=== PATIENT | female | born 1940 | race Caucasian/White ===

== ENCOUNTER 2018-05-24 16:02 | Inpatient (IN) | payer OTHER, BC ==
[~2018-05-24] VITALS: Ht 160 cm; Wt 94.3 kg
--- NOTE | ~2018-05-24 | EKG ---
[place] [address] [facility] [place] [address] ELECTROCARDIOGRAM REPORT Name: MICHELLE WAGONER Room #: 356-P ADM IN M.R.#: [id number] Admission: 05/24/18 Attend Phys: Fletcher Hinlke MD Discharge: Date of : 38 Report #: [id number] THIS REPORT FOR: //name// [facility] ED Test Date: 2018-05-24 Test Time: 17:00:24 Pat Name: MICHELLE WAGONER Department: Room: Gender: F Anesthesiology Technologist: Ricardo TERRY : 1940 Requested By: Alfred Abbott Order Number: [id number] MD: Crow Moody Measurements Intervals [place] Rate: 66 P: DC: QRS: -23 QRSD: 99 T: 68 QT: 452 QTc: 474 Interpretive Statements Atrial fibrillation Ventricular premature complex Poor R wave progression Compared to ECG 04/09/2018 12:52:02 Aberrant conduction is no longer present Electronically Signed On 05-25-2018 7:49:01 CDT by Crow Moody [email or web address] <ELECTRONICALLY SIGNED> By: Crow Moody MD, [facility] 05/25/18 0749 99 99 Crow Moody MD, [facility] /EPI
--- NOTE | ~2018-05-24 | EKG ---
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 : 1940 Requested By: Ivonne Xiong Order Number: [id number] MD: Crow Moody Measurements Intervals [place] Rate: 116 P: [place]: QRS: 24 QRSD: 99 T: 192 QT: 330 QTc: 459 Interpretive Statements Atrial fibrillation Ventricular premature complexes Low voltage, extremity leads Nonspecific repol abnormality, diffuse leads Compared to ECG 05/24/2018 17:00:24 [address] change in the ST and T-wave segments Electronically Signed On 05-27-2018 8:20:56 CDT by Crow Moody [email or web address] <ELECTRONICALLY SIGNED> By: Crow Moody MD, [facility] 05/27/18 0820 2210 09 Crow Moody MD, [facility] /EPI
[~2018-05-24 16:02] MED LIST: AMARYL2 MG PO; APAP500 PO; ASPIRIN EC81 M1 PO; COUMADIN 5 MG TA5 M1 PO; COUMADIN6 MG PO; CRESTOR40 MG; DEMADEX20 MG PO; DOXYCYCLINE 10100 M1 PO; ESTRACE1 MG PO; GLUCOPHAGE XR500 MG PO; JANUMET 50-1,01 EACH PO; JANUVIA25 MG PO; K-DUR 20 MEQ T20 MEQ PO; KLOR-CON 1010 MEQ PO; LEVAQUIN 500 M500 M1 PO; LEVAQUIN 500 M500 M2 PO; LIPITOR20 MG PO; LISINOPRIL2.5 MG PO; LOPRESSOR25 PO; MULTAQ400 MG PO; PREDNISONE 20 M20 M1 PO; TOPROL XL50 MG PO; TORSEMIDE100 MG PO; VENTOLIN HFA INH8 GM INH
[2018-05-24 16:04] VITALS: BP 154/92
[2018-05-24 16:33] LABS: ABSOLUTE NEUTROPHILS 4.6 thou/uL (1.4-8.2); BASOPHILS 0.6 % (0.0-2.0); EOSINOPHILS 0.3 % (0.0-3.0); HEMATOCRIT 37.7 % (37.0-47.0); HEMOGLOBIN 12.7 gm/dL (12.0-15.0); LYMPHOCYTES 10.5 % (24.0-44.0); MCH 32.1 pg (26.0-34.0); MCHC 33.7 g/dL (28.0-37.0); MCV 95.1 fL (80.0-100.0); MONOCYTES 9.2 % (1.0-8.0); PLATELET COUNT 127 thou/uL (150-400); POLYS 79.4 % (36.0-66.0); RBC 3.97 mil/uL (4.20-5.00); RDW 15.2 % (10.5-14.5); WBC 5.8 thou/uL (4.0-11.0)
[2018-05-24 16:41] LABS: ANION GAP 8 mmol/L (7-16); BUN 12 mg/dL (7-18); CALCIUM 8.5 mg/dL (8.5-10.1); CHLORIDE 105 mmol/L (98-107); CO2 29 mmol/L (21-32); CREATININE 1.3 mg/dL (0.6-1.0); GLUCOSE 149 mg/dL (74-106); POTASSIUM 3.9 mmol/L (3.5-5.1); SODIUM 142 mmol/L (136-145)
[2018-05-24 16:50] LABS: TROPONIN-I <0.06 ng/mL (<0.06)
[2018-05-24 16:59] LABS: BE(vivo) -0.5 mmol/L (-2 to +3); HCO3 24.6 mmol/L (22.0-26.0); PCO2 41.9 mmHg (35.0-45.0); PO2 92.3 mmHg (80.0-100.0); pH 7.386 (7.360-7.450)
[2018-05-24 17:41] LABS: INR 2.8; PROTIME 28.5 Seconds (9.3-11.4)
[2018-05-24 18:42] VITALS: BP 154/92
[2018-05-24 19:08] VITALS: BP 110/45
[2018-05-24 19:55] VITALS: BP 115/57
[2018-05-24 23:40] VITALS: BP 123/54
[2018-05-25 03:30] VITALS: BP 111/61
[2018-05-25 05:36] LABS: HEMATOCRIT 35.7 % (37.0-47.0); HEMOGLOBIN 12.1 gm/dL (12.0-15.0); MCH 32.3 pg (26.0-34.0); MCHC 33.9 g/dL (28.0-37.0); MCV 95.4 fL (80.0-100.0); RBC 3.74 mil/uL (4.20-5.00); RDW 15.3 % (10.5-14.5); WBC 2.8 thou/uL (4.0-11.0)
[2018-05-25 05:47] LABS: CALCIUM 8.1 mg/dL (8.5-10.1); CREATININE 1.2 mg/dL (0.6-1.0); POTASSIUM 4.2 mmol/L (3.5-5.1)
[2018-05-25 07:43] VITALS: BP 146/57
[2018-05-25 11:29] VITALS: BP 129/77
[2018-05-25 15:30] VITALS: BP 132/65
[2018-05-25 20:55] VITALS: BP 113/88
[2018-05-26 03:20] VITALS: BP 139/58
[2018-05-26 07:58] VITALS: BP 134/61
[2018-05-26 09:57] LABS: ABSOLUTE NEUTROPHILS 9.4 thou/uL (1.4-8.2); BASOPHILS 0.1 % (0.0-2.0); HEMATOCRIT 37.4 % (37.0-47.0); HEMOGLOBIN 12.5 gm/dL (12.0-15.0); LYMPHOCYTES 6.9 % (24.0-44.0); MCHC 33.4 g/dL (28.0-37.0); MCV 95.6 fL (80.0-100.0); MONOCYTES 2.5 % (1.0-8.0); PLATELET COUNT 138 thou/uL (150-400); POLYS 90.5 % (36.0-66.0); RBC 3.91 mil/uL (4.20-5.00); RDW 15.5 % (10.5-14.5)
[2018-05-26 10:01] LABS: WBC 10.4 thou/uL (4.0-11.0)
[2018-05-26 10:04] LABS: CALCIUM 8.8 mg/dL (8.5-10.1); CREATININE 1.5 mg/dL (0.6-1.0); POTASSIUM 4.1 mmol/L (3.5-5.1)
[2018-05-26 10:10] LABS: INR 3.7; PROTIME 37.2 Seconds (9.3-11.4)
[2018-05-26 12:46] VITALS: BP 145/75
[2018-05-26 17:29] VITALS: BP 132/58
[2018-05-26 19:50] VITALS: BP 133/63
[2018-05-26 23:30] VITALS: BP 131/67
[2018-05-27 03:50] VITALS: BP 141/57
[2018-05-27 07:31] VITALS: BP 134/72
[2018-05-27 10:51] LABS: INR 2.8; PROTIME 28.4 Seconds (9.3-11.4)
[2018-05-27] MEDS ORDERED: PREDNISONE 10 M10 M1 PO (10:59)
[2018-05-27] MEDS ORDERED: LEVAQUIN 750 M750 MG PO (10:59)
[2018-05-27] MEDS ORDERED: NYSTATIN100000 UNI SW&SWALLOW (10:59)
[2018-05-27 11:28] VITALS: BP 130/53
[2018-05-27 16:10] VITALS: BP 137/55
[2018-05-27 20:15] VITALS: BP 132/53
[2018-05-28 04:50] VITALS: BP 132/57
[2018-05-28 06:22] LABS: ABSOLUTE NEUTROPHILS 9.4 thou/uL (1.4-8.2); HEMATOCRIT 37.1 % (37.0-47.0); HEMOGLOBIN 12.5 gm/dL (12.0-15.0); LYMPHOCYTES 7.2 % (24.0-44.0); MCH 31.5 pg (26.0-34.0); MCHC 33.6 g/dL (28.0-37.0); MCV 93.7 fL (80.0-100.0); MONOCYTES 3.7 % (1.0-8.0); PLATELET COUNT 150 thou/uL (150-400); POLYS 89.1 % (36.0-66.0); RBC 3.96 mil/uL (4.20-5.00); RDW 15.7 % (10.5-14.5); WBC 10.6 thou/uL (4.0-11.0)
[2018-05-28 06:32] LABS: INR 2.2
[2018-05-28 06:40] LABS: CALCIUM 8.3 mg/dL (8.5-10.1); CREATININE 1.5 mg/dL (0.6-1.0); POTASSIUM 4.3 mmol/L (3.5-5.1)
[2018-05-28 08:55] VITALS: BP 132/78
[2018-05-28 12:18] VITALS: BP 130/74
[2018-05-28 12:47] VITALS: BP 130/74
[2018-05-28 17:19] VITALS: BP 142/82
[2018-05-28 17:27] VITALS: BP 130/74
== END 2018-05-28 18:40 | disposition home or self-care (01) | DRG 871 ==
LOC: ER 16:02 → 3W 18:01 → EROBS 18:01 → 3W 19:33 → ENTRNSPT 05-28 18:32 → 3W 05-28 18:40
PROVIDERS: Hospitalist; Internal Medicine; Physician Assistant
PROC: 5A09357 Assistance with Respiratory Ventilation, Less than 24 Consecutive Hours, Continuous Positive Airway Pressure (ICD-10-PCS; principal; 2018-05-24)
DX: A41.9 Sepsis, unspecified organism (principal); I50.33 Acute on chronic diastolic (congestive) heart failure; J96.01 Acute respiratory failure with hypoxia; J18.9 Pneumonia, unspecified organism; J44.1 Chronic obstructive pulmonary disease with (acute) exacerbation; I13.0 Hypertensive heart and chronic kidney disease with heart failure and stage 1 through stage 4 chronic kidney disease, or unspecified chronic kidney disease; J44.0 Chronic obstructive pulmonary disease with (acute) lower respiratory infection; E11.9 Type 2 diabetes mellitus without complications; E78.5 Hyperlipidemia, unspecified; I48.91 Unspecified atrial fibrillation; I27.20 Pulmonary hypertension, unspecified; E11.22 Type 2 diabetes mellitus with diabetic chronic kidney disease; Z60.2 Problems related to living alone; Z90.710 Acquired absence of both cervix and uterus; Z90.49 Acquired absence of other specified parts of digestive tract; Z88.0 Allergy status to penicillin
CPT/HCPCS: 10779

== ENCOUNTER → 2018-09-29 | Outpatient (CLI) | payer OTHER, BC ==
[~2018-09-29] MED LIST changes: +ALBUTEROL2.5 MG/31 INH; +LEVAQUIN 750 M750 MG PO; +MUCINEX600 MG PO; +NYSTATIN100000 UNI SW&SWALLOW; +PANTOPRAZOLE SO40 M1 PO; +PREDNISONE 10 M10 M1 PO; +PREDNISONE 20 M20 MG PO
== END ==
LOC: CAT 09-16 11:50
DX: J98.11 Atelectasis (principal); J90 Pleural effusion, not elsewhere classified; I51.7 Cardiomegaly; J18.9 Pneumonia, unspecified organism; I25.10 Atherosclerotic heart disease of native coronary artery without angina pectoris; I70.0 Atherosclerosis of aorta

== ENCOUNTER → 2018-10-14 | Outpatient (CLI) | payer OTHER, BC | LOC: ULTRA 09:56 | DX: M79.89 Other specified soft tissue disorders (principal); M79.605 Pain in left leg; R60.0 Localized edema ==

== ENCOUNTER 2020-01-25 18:12 | Inpatient (IN) | payer OTHER, BC ==
[~2020-01-25] VITALS: Ht 160 cm; Wt 93.4 kg
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
[2020-01-25] MEDS ORDERED: LOPRESSOR25 PO (18:22)
[2020-01-25] MEDS ORDERED: METFORMIN HCL1000 MG PO (18:22)
[2020-01-25] MEDS ORDERED: LIPITOR 40 MG T40 M1 PO (18:22)
[2020-01-25] MEDS ORDERED: TORSEMIDE100 MG PO (18:22)
[2020-01-25] MEDS ORDERED: K-DUR10 MEQ PO (18:22)
[2020-01-25] MEDS ORDERED: GLIMEPIRIDE4 MG PO (18:22)
[2020-01-25] MEDS ORDERED: ELIQUIS5 MG PO (18:23)
[2020-01-25] MEDS ORDERED: JANUVIA100 MG PO (18:23)
[2020-01-25 18:42] LABS: ABSOLUTE NEUTROPHILS 4.9 thou/uL (1.4-8.2); BASOPHILS 0.5 % (0.0-2.0); HEMATOCRIT 38.5 % (37.0-47.0); HEMOGLOBIN 12.6 gm/dL (12.0-15.0); LYMPHOCYTES 19.3 % (24.0-44.0); MCH 31.4 pg (26.0-34.0); MCHC 32.6 g/dL (28.0-37.0); MCV 96.2 fL (80.0-100.0); MONOCYTES 7.3 % (1.0-8.0); PLATELET COUNT 145 thou/uL (150-400); POLYS 70.9 % (36.0-66.0); RDW 14.8 % (10.5-14.5)
[2020-01-25 18:49] LABS: ANION GAP 6 mmol/L (7-16); BUN 23 mg/dL (7-18); CHLORIDE 106 mmol/L (98-107); CO2 31 mmol/L (21-32); CREATININE 1.6 mg/dL (0.6-1.0); GLUCOSE 172 mg/dL (74-106); SODIUM 143 mmol/L (136-145)
[2020-01-25 18:59] LABS: ALBUMIN 3.5 g/dL (3.4-5.0); SGOT 33 U/L (15-37); SGPT 29 U/L (30-65); TOTAL BILIRUBIN 0.7 mg/dL (<0.1-1.0); TOTAL PROTEIN 6.6 g/dL (6.4-8.2); TROPONIN-I <0.06 ng/mL (<0.06)
[2020-01-25 21:52] VITALS: BP 148/60
[2020-01-25 22:50] VITALS: BP 141/64
--- NOTE | 2020-01-26 03:37 | NUR ---
PT HR DROPPING TO UPPER 30s. PT IS ASSYMPTOMATIC. DENIES ANY LIGHHEADEDNESS. NUCLEAR DESIGN ENGINEER NOTIFIED STATED WILL MAKE CHANGES TO PT'S BETA EMELI.
[2020-01-26 04:40] VITALS: BP 122/51; BP 164/136
--- NOTE | 2020-01-26 05:16 | NUR ---
PT ADMITTED FROM ED APPROX 2245HRS. A&O X4 ABLE TO MAKE NEEDS KNOWN. C/O R CHEST NON-CARDIAC PAIN 2/10 AND L SHOULDER PAIN 2/10 UPON ARRIVAL TO THE FLOOR. PRN PAIN MEDS AVAILABLE. R EYE REYNA ORBITAL BRUISING WITH [address] THAT WAS STILL BLEEDING WHEN PT ARRIVED TO THE FLOOR. ALSO SWOLLED. PRESSURE PUT ON THE LACERATION. PT ALSO USING ICE PACK FOR SWELLING. PT ALSO HAS A BLACK EYE ON L EYE. RIGHT FACIAL BRUISING ECCHMOTIC AND EDEMATOUS THAT HAS GREATLY IMPROVED SINCE PT ARRIVED TO THE FLOOR. PT REFUSED NS IVF ORDERED STATED 'AM GETTING FLUID OVERLOADED' ORDERING CRAB STEAMER NOTIFIED. PT EDUCATED ON NEED FOR COMPLIANCE WITH PROVIDER'S ORDERS. VERBALIZED UNDERSTANDING. 2L O2 PER NC NOC. ACHS. NPO SINCE MIDNIGHT.
[2020-01-26 06:25] LABS: CALCIUM 8.6 mg/dL (8.5-10.1); CREATININE 1.4 mg/dL (0.6-1.0); POTASSIUM 4.1 mmol/L (3.5-5.1)
[2020-01-26 06:47] LABS: INR 1.1; PROTIME 11.4 Seconds (9.3-11.4)
--- NOTE | 2020-01-26 07:17 | NUR ---
PT REFUSED SCDS
[2020-01-26 07:35] LABS: ABSOLUTE NEUTROPHILS 5.9 thou/uL (1.4-8.2); BASOPHILS 0.3 % (0.0-2.0); EOSINOPHILS 1.3 % (0.0-3.0); HEMATOCRIT 35.4 % (37.0-47.0); HEMOGLOBIN 11.5 gm/dL (12.0-15.0); LYMPHOCYTES 16.3 % (24.0-44.0); MCH 31.2 pg (26.0-34.0); MCHC 32.4 g/dL (28.0-37.0); MCV 96.1 fL (80.0-100.0); MONOCYTES 9.1 % (1.0-8.0); PLATELET COUNT 125 thou/uL (150-400); RBC 3.69 mil/uL (4.20-5.00); RDW 14.5 % (10.5-14.5); WBC 8.1 thou/uL (4.0-11.0)
--- NOTE | 2020-01-26 08:15 | EKG ---
[facility] [place] [address] ELECTROCARDIOGRAM REPORT Name: MICHELLE WAGONER Room #: 208-P ADM IN M.R.#: [id number] Admission: 01/25/20 Attend Phys: Roseamrie Mendoza MD Discharge: Date of : 38 Report #: [id number] THIS REPORT FOR: cc: Reji Wright James A. DO Couchonnal, Luis F. 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
[2020-01-26 08:36] VITALS: BP 138/41
[2020-01-26 11:28] VITALS: BP 131/38
[2020-01-26 16:15] VITALS: BP 130/40
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
[2020-01-26 19:22] VITALS: BP 131/38
[2020-01-27] VITALS (8 sets, daily range): BP systolic 113–134; BP diastolic 44–55
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
[2020-01-27 05:37] LABS: ALBUMIN 2.9 g/dL (3.4-5.0); CREATININE 1.3 mg/dL (0.6-1.0); HEMATOCRIT 33.7 % (37.0-47.0); HEMOGLOBIN 11.1 gm/dL (12.0-15.0); MAGNESIUM 2.4 mg/dL (1.8-2.4); MCH 31.7 pg (26.0-34.0); MCHC 33.1 g/dL (28.0-37.0); POTASSIUM 4.4 mmol/L (3.5-5.1); RBC 3.51 mil/uL (4.20-5.00); RDW 14.5 % (10.5-14.5); WBC 7.2 thou/uL (4.0-11.0)
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
--- NOTE | 2020-01-27 14:25 | NUR ---
Pt dcing home later today. Customer Account Coordinator visited with her at bedside along with OT. The pt reports her dtr will be coming in town to stay with her for two weeks and she can drive her to f/u appts. The pt declined HH referral and she does not intend to be homebound. She has an active lifestyle and feels outpt therapy will be better for her. Care team and the attending updated. Outpt PT and OT script recommended at dc. Pt to make her f/u appts and coodinate her outpt therapy evals. No dme indicated.
--- NOTE | 2020-01-27 19:39 | NUR ---
ASSUMED CARE OF PATIENT AT 0700. PATIENT IS SITTING COMFORTABLY IN BED. ACHS ACCUCHECK COVERED BY INSULIN. PATIENT TAKING LIDOCAINE PATCH, OXY AND ACET FOR PAIN CONTROL. PATIENT WORKED WITH PT AND OT WITHOUT ANY DIFFICULTY. PATIENT IS EAGER TO D/C TOMORROW AND GO HOME. PATIENT TO CONTINUE WITH POC.
--- NOTE | 2020-01-28 03:40 | NUR ---
ASSESSMENT DOCUMENTED.PT BEEN RESTING IN NO ACUTE DISTRESS.A/OX4.VSS.AFIB ON MONITOR W/CONTROLLED RATE.PAIN CONTROLLED WITH PRN PAIN MEDS.O2 AT 2LITERS PNC W/O RESP DISTRESS.SBA WITH TOILETING.ANTICIPATING DISCHARGE TODAY TO HOME.WILL CONT TO MONITOR PER POC.
[2020-01-28 04:33] VITALS: BP 121/59
[2020-01-28] MEDS ORDERED: OXYCODONE HCL 55 MG PO (06:56)
[2020-01-28] MEDS ORDERED: MIRALAX17 GM PO (07:33)
[2020-01-28] MEDS ORDERED: SENNA-TIME S T1 EACH PO (07:33)
[2020-01-28 07:50] VITALS: BP 129/53
--- NOTE | 2020-01-28 10:45 | NUR ---
PT IS DCING HOME TODAY. DTR TO BE HERE AROUND NOON. OUTPT PT SCRIPT ON CHART. PT HAS HOME O2 FOR NOC USE AND A FEW PORTABLE TANKS FOR PRN USE. NO CM INTERVENTIONS INDICATED THIS AM. CASE DISCUSSED WITH THE CARE TEAM. PT TO ARRANGE FOR HER OWN OUTPT THERAPY F/U.
[2020-01-28 10:46] VITALS: BP 130/47
[2020-01-28 11:40] VITALS: BP 128/60
[2020-01-28] MEDS ORDERED: HYDROCODON-ACE1 EAC7 PO (13:27)
--- NOTE | 2020-01-28 14:50 | NUR ---
PT ALERT AND ORIENTED TIMES FOUR. VSS. PT C/O PAIN PRN PAIN MEDICATIONS GIVEN WITH GOOD RELEIF. PT TOLERATES MEDS AND MEALS. PT UP WITH STANDBY ASSIST. PLANS FOR DISCHAGE TODAY. PT PROGRESSING TOWRADS POC GOALS.
== END 2020-01-28 14:41 | disposition home or self-care (01) | DRG 563 ==
LOC: ER 18:12 → 2N 21:42 → EROBS 21:42 → 3W 22:32 → 2N 22:36
PROVIDERS: Nurse Practitioner Family; Student in an Organized Health Care Education/Training Program; Surgery; ADMIT Surgery
DX: S42.002A Fracture of unspecified part of left clavicle, initial encounter for closed fracture (principal); S22.49XA Multiple fractures of ribs, unspecified side, initial encounter for closed fracture; S02.31XA Fracture of orbital floor, right side, initial encounter for closed fracture; I48.20 Chronic atrial fibrillation, unspecified; E11.9 Type 2 diabetes mellitus without complications; S02.2XXA Fracture of nasal bones, initial encounter for closed fracture; I10 Essential (primary) hypertension; E78.5 Hyperlipidemia, unspecified; E11.42 Type 2 diabetes mellitus with diabetic polyneuropathy; I50.9 Heart failure, unspecified; N18.3 Chronic kidney disease, stage 3 (moderate); H11.31 Conjunctival hemorrhage, right eye; R04.0 Epistaxis; R58 Hemorrhage, not elsewhere classified; Z79.4 Long term (current) use of insulin; Z90.49 Acquired absence of other specified parts of digestive tract; Z88.0 Allergy status to penicillin; Z90.710 Acquired absence of both cervix and uterus; V89.2XXA Person injured in unspecified motor-vehicle accident, traffic, initial encounter; Y93.89 Activity, other specified; Y92.89 Other specified places as the place of occurrence of the external cause; Y99.8 Other external cause status
CPT/HCPCS: 10081

== ENCOUNTER → 2020-05-11 | Outpatient (CLI) | payer OTHER, BC ==
[~2020-05-11] MED LIST changes: +ELIQUIS5 MG PO; +GLIMEPIRIDE4 MG PO; +HYDROCODON-ACE1 EAC7 PO; +JANUVIA100 MG PO; +K-DUR10 MEQ PO; +LIPITOR 40 MG T40 M1 PO; +METFORMIN HCL1000 MG PO; +MIRALAX17 GM PO; +OXYCODONE HCL 55 MG PO; +SENNA-TIME S T1 EACH PO
[2020-05-11 08:29] LABS: CREATININE 1.5 mg/dL (0.6-1.0)
== END ==
LOC: MRI 06:24
PROVIDERS: ATTEND Podiatrist Foot Surgery
DX: S86.011A Strain of right Achilles tendon, initial encounter (principal); E11.40 Type 2 diabetes mellitus with diabetic neuropathy, unspecified; M79.671 Pain in right foot; R22.41 Localized swelling, mass and lump, right lower limb; M19.071 Primary osteoarthritis, right ankle and foot; M25.871 Other specified joint disorders, right ankle and foot; M62.561 Muscle wasting and atrophy, not elsewhere classified, right lower leg; M77.31 Calcaneal spur, right foot; X58.XXXA Exposure to other specified factors, initial encounter; Y93.89 Activity, other specified; Y92.89 Other specified places as the place of occurrence of the external cause; Y99.8 Other external cause status

== ENCOUNTER → 2020-10-03 | Outpatient (CLI) | payer OTHER, BC | LOC: RAD 15:10 | PROVIDERS: ATTEND Internal Medicine | DX: R91.8 Other nonspecific abnormal finding of lung field (principal); J90 Pleural effusion, not elsewhere classified; I51.7 Cardiomegaly; J47.9 Bronchiectasis, uncomplicated; R06.02 Shortness of breath ==